=== PATIENT | female | born 1960 | race American Indian/Alaskan Native ===

== ENCOUNTER 2021-03-23 20:16 | Emergency (ER) | payer MEDICARE ==
[2021-03-23] MEDS ORDERED: HYDROmorphone 1 MG/ML Syringe IVPUSH ONE ×3 (20:29→21:27)
[2021-03-23] MEDS ORDERED: cloNIDine 0.1 MG Tab PO ONE (21:08)
--- NOTE | 2021-03-23 21:27 | EDM.PDOC ---
ED HPI GENERAL MEDICAL PROBLEM - General Chief Complaint: Lower Extremity Injury/Pain Stated Complaint: leg pain Time Seen by Provider: 03/23/21 20:25 Source of Information: Reports: Patient, Family (daughter), RN History Limitations: Reports: Other (severe pain) - History of Present Illness INITIAL COMMENTS - FREE TEXT/NARRATIVE: Pt comes in per EMS with complaints of severe leg pain bilaterally. She was in our ER earlier today with leg pain. She had pain in lower legs at that time and states that she could feel them but they were numb feeling. She had bilateral fem-pop done in 2010 and she has had pain in legs since then but not this severe. She had SS disability exam in Aug 2020 and they were not able to dopple pulses in either leg from her groin to her feet. Her BP at that exam by her report was 240/110. She was instructed to see PCP which she did not do and has not seen one since 2009. She states that randomly her legs will give out on her and she will lower herself to the floor. She states that her legs always hurt sometimes worse than others. Today she states that the pain was much worse and she came into the ER. She was able to walk in at that time without any assistance needed. She states that she could feel her legs but they felt numb. She had capillary refill. No pulses were able to be palpated or doppled from the groin on down. Her labs this afternoon were normal. She states that at discharge her legs were back to baseline and she was able to walk out. She relates that she was doing OK at home had started her Gabapentin and took her lisinopril as directed. Approximately 1730 she states that she developed severe pain to both legs that was worse that she has ever had so took a bath to try to help it and was unable to get out of tub without assistance. Since then she has not been able to bear weight or move her legs. She also noted that her legs became purple and her toes especially on the right foot became white. The left foot she states did not get white. When She returned to the ER she now has no sensation to the lower extremities from knees down and is not able to feel pinpricks. She can feel from the knees to the thigh and has increase in pain. She is not able to move her legs on her own. When they are moved they do cause increase in pain to the thighs. Legs are not edematous. They are now cool where earlier they were normal temp. She is in a severe amount of pain at this time. Saline lock was started and IV dilaudid was given with minimal relief and was repeated. See NN for times. Location: Reports: Lower Extremity, Left, Lower Extremity, Right Leg Pain Score (Numeric/FACES): 10 - Related Data Allergies Allergy/AdvReac Type Severity Reaction Status Date / Time No Known Allergies Allergy Verified 03/23/21 12:44 Home Meds: Home Meds Gabapentin [Neurontin] 100 mg PO TID 03/23/21 [History] lisinopriL [Lisinopril] 20 mg PO DAILY 03/23/21 [History] Past Medical History Cardiovascular History: Reports: Hypertension, Other (See Below) Other Cardiovascular History: peripheral artery disease Gastrointestinal History: Reports: Other (See Below) Other Gastrointestinal History: Sherman's esophagus - Infectious Disease History Infectious Disease History: Reports: None - Past Surgical History Cardiovascular Surgical History: Reports: Other (See Below) Other Cardiovascular Surgeries/Procedures: stents for PAD Social & Family History - Tobacco Use Tobacco Use Status *Q: Current Every Day Tobacco User Years of Tobacco use: 50 Packs/Tins Daily: 1 - Caffeine Use Caffeine Use: Reports: Coffee, Soda - Recreational Drug Use Recreational Drug Use: No Review of Systems - Review of Systems Review Of Systems: See Below Constitutional: Reports: Weakness. Denies: Chills, Fever Eyes: Reports: No Symptoms Ears: Reports: No Symptoms Nose: Reports: No Symptoms Mouth/Throat: Reports: No Symptoms Respiratory: Reports: No Symptoms Cardiovascular: Reports: No Symptoms GI/Abdominal: Reports: No Symptoms Musculoskeletal: Reports: Leg Pain, Foot Pain, Muscle Pain. Denies: Back Pain Skin: Reports: No Symptoms Neurological: Reports: No Symptoms ED EXAM, GENERAL - Physical Exam Exam: See Below Exam Limited By: No Limitations General Appearance: Alert, WD/WN, Severe Distress Ears: Normal External Exam, Normal Canal, Normal TMs Neck: Normal Inspection, Supple, Non-Tender Respiratory/Chest: No Respiratory Distress, Lungs Clear, Normal Breath Sounds Cardiovascular: Regular Rate, Rhythm Back Exam: Normal Inspection Extremities: Other (sdee HPI) Neurological: Alert, Oriented Course - Vital Signs Last Recorded V/S: Last Vital Signs Temp 96.5 F L 03/23/21 20:17 Pulse 86 06/03/21 20:17 Resp 16 03/23/21 20:17 BP 220/100 H 03/23/21 20:17 Pulse Ox 98 03/23/21 20:17 - Orders/Labs/Meds Meds: Medications Discontinued Medications Generic Name Dose Route Start Last Admin Trade Name aPulina PRN Reason Stop Dose Admin Hydromorphone HCl 2 mg 03/23/21 20:29 03/23/21 20:36 Hydromorphone 1 Mg/Ml Syringe IVPUSH 03/23/21 20:30 2 mg ONETIME ONE Administration Hydromorphone HCl 2 mg 03/23/21 20:49 03/23/21 20:54 Hydromorphone 1 Mg/Ml Syringe IVPUSH 03/23/21 20:50 2 mg ONETIME ONE Administration - Re-Assessments/Exams Free Text/Narrative Re-Assessment/Exam: 03/23/21 21:15 She is now able to move both lower extremities by pulling up her legs. She can move toes slightly. She can feel pinpricks from the mid calf up which improved as she couldn't feel below the knees when she came in. Legs are now slightly warm and pink verses cold and purple when she arrived. She has no sensation to feet bilaterally. She is resting much easier after receiving dilaudid. 03/23/212049 Discussed pt with Dr. Lindsey at ER in [facility]. He will accept pt in transfer by air. He did not recommend imaging as it will delay transfer time. 03/23/21 21:39 risks of transfer with were discussed with pt to include increase in pain enroute, worsening of condition up to . Risk of non transfer would be loss of limb, increase in pain. benefit of transfer would include increase ability to test, specialists as needed and ICU if needed. Benefit of non transfer would be closer to home. Pt is in agreement with the transfer. 03/23/21 21:42 Departure - Departure Time of Disposition: 21:39 Disposition: DC/Tfer to Acute Hospital 02 Condition: Serious Clinical Impression: PAD (peripheral artery disease), Numbness in both legs, Pulses absent in 2 limbs - Discharge Information *PRESCRIPTION DRUG MONITORING PROGRAM REVIEWED*: Not Applicable *COPY OF PRESCRIPTION DRUG MONITORING REPORT IN PATIENT RATNA: Not Applicable Referrals: PCP,Unknown [Primary Care Provider] - Additional Instructions: Pt will be transferred by air to [facility] with Dr. Lindsey accepting . Sepsis Event Note (ED) - Evaluation Sepsis Screening Result: No Definite Risk - Focused Exam Vital Signs: Vital Signs Temp Pulse Resp BP Pulse Ox 03/23/21 20:17 96.5 F L 86 16 220/100 H 98 - Problem List & Annotations (1) PVD (peripheral vascular disease) SNOMED Code(s): 113304661 Code(s): I73.9 - PERIPHERAL VASCULAR DISEASE, UNSPECIFIED Status: Acute Priority: High Current Visit: No (2) Neuropathy SNOMED Code(s): 670107975 Code(s): G62.9 - POLYNEUROPATHY, UNSPECIFIED Status: Acute Priority: High Current Visit: No (3) Numbness in both legs SNOMED Code(s): 352537992 Code(s): R20.0 - ANESTHESIA OF SKIN Status: Acute Priority: High Current Visit: Yes (4) PAD (peripheral artery disease) SNOMED Code(s): 327031293 Code(s): I73.9 - PERIPHERAL VASCULAR DISEASE, UNSPECIFIED Status: Acute P riority: High Current Visit: Yes (5) Pulses absent in 2 limbs SNOMED Code(s): 850111169 Code(s): R09.89 - OTH SYMPTOMS AND SIGNS INVOLVING THE CIRC AND RESP SYSTEMS Status: Acute Priority: High Current Visit: Yes - Problem List Review Problem List Initiated/Reviewed/Updated: Yes
== END 2021-03-23 22:05 ==
LOC: CC.ED 20:16
DX: I73.9 Peripheral vascular disease, unspecified (principal); I10 Essential (primary) hypertension; Z72.0 Tobacco use; Z79.899 Other long term (current) drug therapy; M79.609 Pain in unspecified limb
CPT/HCPCS: 36415; 71046; 80053; 81001; 85025; 85652; 86140; 93005; 93010; 96374; 96376; 99284; 99284-25; 99285-25; A9270-GY; J1170

== ENCOUNTER 2021-04-07 11:21 | Emergency (ER) | payer MEDICARE ==
--- NOTE | 2021-04-07 12:09 | EDM.PDOC ---
ED HPI GENERAL MEDICAL PROBLEM - General Chief Complaint: General Stated Complaint: LEG SWELLENING Time Seen by Provider: 04/07/21 11:35 Source of Information: Reports: Patient, Old Records History Limitations: Reports: No Limitations - History of Present Illness INITIAL COMMENTS - FREE TEXT/NARRATIVE: Carol is a 60 year old female who presents to the ED with c/o increased pain to right groin site and bilateral foot pain. She is status post axillary and bifemoral bypass with Dr. Cao on 03/25/2021. She was transferred out of our local ED with aortic occlusion and ischemia to [facility]. Has hx severe PAD. She has been anticoagulated on Coumadin and was previously bridging with Lovenox as well. She reports the last 2 days right groin site has had increased pain. She reports she is unable to see the site due to abdomen, so is unsure of what it looks like. She reports she has also had bilateral foot pain and numbness since Saturday. Does report that last night her left toes were changing colors and appeared "black" intermittently. She feels bilateral lower extremities have been more cool than the days following procedure. She denies any fever, chills, N/V/D, chest pain, shortness of breath. Onset Date: 04/05/21 Duration: Constant, Getting Worse Quality: Reports: Ache, Throbbing Severity: Severe Associated Symptoms: Reports: No Other Symptoms. Denies: Confusion, Chest Pain, Cough, cough w sputum, Diaphoresis, Fever/Chills, Headaches, Loss of Appetite, Malaise, Nausea/Vomiting, Rash, Seizure, Shortness of Breath, Syncope, Weakness bilateral feet Pain Score (Numeric/FACES): 8 - Related Data Allergies Allergy/AdvReac Type Severity Reaction Status Date / Time No Known Allergies Allergy Verified 04/07/21 11:37 Home Meds: Home Meds Gabapentin [Neurontin] 100 mg PO TID 03/23/21 [History] Warfarin [Coumadin] 2.5 mg PO DAILY 04/07/21 [History] Past Medical History Cardiovascular History: Reports: Hypertension, Other (See Below) (PAD) Other Cardiovascular History: peripheral artery disease Respiratory History: Reports: COPD Gastrointestinal History: Reports: Other (See Below) Other Gastrointestinal History: Sherman's esophagus - Infectious Disease History Infectious Disease History: Reports: None - Past Surgical History Other Cardiovascular Surgeries/Procedures: stents for PAD Social & Family History - Tobacco Use Tobacco Use Status *Q: Former Tobacco User Years of Tobacco use: 40 Tobacco Use Comment: Quit last week - Caffeine Use Caffeine Use: Reports: Coffee, Soda - Alcohol Use Alcohol Use in Last Twelve Months: No Alcohol Use Comment: Quit drinking 7 years ago - Recreational Drug Use Recreational Drug Use: No ED ROS GENERAL - Review of Systems Review Of Systems: See Below Constitutional: Denies: Fever, Chills, Malaise, Weakness, Fatigue, Decreased Appetite HEENT: Reports: No Symptoms Respiratory: Reports: No Symptoms Cardiovascular: Reports: No Symptoms Endocrine: Reports: No Symptoms GI/Abdominal: Reports: No Symptoms : Reports: No Symptoms Musculoskeletal: Reports: No Symptoms Skin: Reports: Other (incision to right upper chest and bilateral groin, kirit) Neurological: Reports: No Symptoms Psychiatric: Reports: No Symptoms ED EXAM, GENERAL - Physical Exam Exam: See Below Exam Limited By: No Limitations General Appearance: Alert, WD/WN, No Apparent Distress Head: Atraumatic, Normocephalic Neck: Normal Inspection, Supple, Non-Tender, Full Range of Motion Respiratory/Chest: No Respiratory Distress, No Accessory Muscle Use, Chest Non- Tender, Wheezing Cardiovascular: Regular Rate, Rhythm, No Edema Peripheral Pulses: 0: Posterior Tibial (L) (Able to Dopple faint pulse), Posterior Tibial (R) (able to dopple), Dorsalis Pedis (L) (able to dopple faint pulse), Dorsalis Pedis (R) (able to dopple) GI/Abdominal: Normal Bowel Sounds, Soft, Non-Tender, No Organomegaly, No Distention, No Abnormal Bruit, No Mass Extremities: Normal Range of Motion, Normal Capillary Refill (RLE), Slow Capillary Refill (3 seconds LLE), Leg Pain, Other (left lower extremity cool to touch up to mid calf, right lower extremity warm to touch ) Neurological: Alert, Oriented, CN II-XII Intact, Normal Cognition, Normal Gait, No Motor/Sensory Deficits Psychiatric: Normal Affect, Normal Mood Skin Exam: Wound/Incision (incision to bilatearl groin, right groin site with moderate calor, tenderness to palpation, erythema extending out surrounding incision, and purulent drainage, left groin site with mild calor and erythema, no drainage) Course - Vital Signs Last Recorded V/S: Last Vital Signs Temp 98.1 F 04/07/21 13:37 Pulse 101 H 04/07/21 13:37 Resp 18 04/07/21 13:37 BP 148/81 H 04/07/21 13:37 Pulse Ox 97 04/07/21 13:37 - Orders/Labs/Meds Orders: Active Orders 24 hr Category Date Time Status CULTURE BLOOD [BC] Stat Lab 04/07/21 11:59 Received CULTURE BLOOD [BC] Stat Lab 04/07/21 11:59 Received CULTURE WOUND [RM] Stat Lab 04/07/21 12:03 Received Blood Culture x2 Reflex Set [OM.PC] Stat Oth 04/07/21 11:37 Ordered EKG 12 Lead [EK] Stat Ther 04/07/21 11:37 Ordered Labs: Laboratory Tests 04/07/21 04/07/21 04/07/21 Range/Units 11:59 11:59 11:59 WBC 14.0 H (4.0-11.0) 10^3/uL RBC 3.39 L (4.00-5.50) x10^6/uL Hgb 10.1 L (12.0-16.0) g/dL Hct 31.8 L (37.0-47.0) % MCV 93.8 (83.0-97.0) fL MCH 29.8 (27.0-32.0) pg MCHC 31.8 L (32.0-36.0) g/dL RDW Coeff of Gissell 14.5 (11.0-15.0) % Plt Count 372 (150-400) 10^3/uL Immature Gran % (Auto) 0.6 (0.0-4.9) % Neut % (Auto) 70.6 (41-71) % Lymph % (Auto) 19.2 L (24-44) % [place] % (Auto) 7.1 (0-10) % Eos % (Auto) 2.0 (0-6) % Baso % (Auto) 0.5 (0-1) % Neut # (Auto) 9.89 H (1.80-8.00) x10^3/uL Lymph # (Auto) 2.69 (0.60-5.00) 10^3/uL [place] # (Auto) 1.00 (0.00-1.50) 10^3/uL Eos # (Auto) 0.28 (0.00-1.50) 10^3/uL Baso # (Auto) 0.07 (0.00-0.50) 10^3/uL Immature Gran # (Auto) 0.08 (0.00-0.49) 10^3/uL Sodium 140 (136-145) mEq/L Potassium 4.0 (3.5-5.0) mEq/L Chloride 102 (98-106) mEq/L Carbon Dioxide 28 (21-32) mmol/L BUN 14 (7-18) mg/dL Creatinine 0.7 (0.6-1.0) mg/dL Est Cr Clr Drug Dosing 73.80 mL/min Estimated GFR (MDRD) > 60 (>=60) mL/min Glucose 120 H (75-99) mg/dL Lactic Acid 1.3 (0.4-2.0) mmol/L Calcium 8.8 (8.4-10.1) mg/dL Magnesium 2.2 (1.8-2.4) mg/dL Total Bilirubin 0.2 (0.0-1.0) mg/dL AST 18 (15-37) U/L ALT 28 (12-78) U/L Alkaline Phosphatase 79 (46-116) U/L Troponin I < 0.017 (0.00-0.06) ng/mL C-Reactive Protein (0.2-0.8) mg/dL Total Protein 7.3 (6.4-8.2) g/dL Albumin 2.9 L (3.4-5.0) g/dL 04/07/21 Range/Units 12:00 WBC (4.0-11.0) 10^3/uL RBC (4.00-5.50) x10^6/uL Hgb (12.0-16.0) g/dL Hct (37.0-47.0) % MCV (83.0-97.0) fL MCH (27.0-32.0) pg MCHC (32.0-36.0) g/dL RDW Coeff of Gissell (11.0-15.0) % Plt Count (150-400) 10^3/uL Immature Gran % (Auto) (0.0-4.9) % Neut % (Auto) (41-71) % Lymph % (Auto) (24-44) % [place] % (Auto) (0-10) % Eos % (Auto) (0-6) % Baso % (Auto) (0-1) % Neut # (Auto) (1.80-8.00) x10^3/uL Lymph # (Auto) (0.60-5.00) 10^3/uL [place] # (Auto) (0.00-1.50) 10^3/uL Eos # (Auto) (0.00-1.50) 10^3/uL Baso # (Auto) (0.00-0.50) 10^3/uL Immature Gran # (Auto) (0.00-0.49) 10^3/uL Sodium (136-145) mEq/L Potassium (3.5-5.0) mEq/L Chloride (98-106) mEq/L Carbon Dioxide (21-32) mmol/L BUN (7-18) mg/dL Creatinine (0.6-1.0) mg/dL Est Cr Clr Drug Dosing mL/min Estimated GFR (MDRD) (>=60) mL/min Glucose (75-99) mg/dL Lactic Acid (0.4-2.0) mmol/L Calcium (8.4-10.1) mg/dL Magnesium (1.8-2.4) mg/dL Total Bilirubin (0.0-1.0) mg/dL AST (15-37) U/L ALT (12-78) U/L Alkaline Phosphatase (46-116) U/L Troponin I (0.00-0.06) ng/mL C-Reactive Protein 7.3 H (0.2-0.8) mg/dL Total Protein (6.4-8.2) g/dL Albumin (3.4-5.0) g/dL Meds: Medications Discontinued Medications Generic Name Dose Route Start Last Admin Trade Name Freq PRN Reason Stop Dose Admin Clindamycin Phosphate 600 mg/ 50 mls @ 100 mls/hr 04/07/21 12:06 04/07/21 12:17 Premix IV 04/07/21 12:35 100 mls/hr ONETIME ONE Administration - Re-Assessments/Exams Free Text/Narrative Re-Assessment/Exam: 04/07/21 12:[address] Rinaldi [facility] vascular surgeon. Recommend transfer given concerns for infection and faint pulses/cool to touch LLE. 04/07/21 12:[address] Aleman hospitalist at [facility] who accepted the patient for transfer. 04/07/21 12:50 Discussed recommendation for transfer with patient. Recommended patient be transferred via [facility]. Patient refuses transfer via EMS. She wishes to go via private vehicle. Discussed risks and benefits of transfer, especially via private vehicle. Risks of transfer include worsening of condition, , MVA, increased pain and ischemia enroute. Benefits of transfer include higher level of care with vascular surgeon consultation. Risks of nontransfer include worsening of condition, pain, sepsis, . Benefits of nontransfer includes convenience. I discussed my concern with her going via private vehicle vs EMS. Patient adamantly refuses EMS transfer. SHe verbalizes understanding of risks and is agreeable to transfer via private vehicle. Departure - Departure Time of Disposition: 13:07 Disposition: DC/Tfer to [facility] 02 Condition: Fair Clinical Impression: Status post bypass graft of extremity, Incisional infection, PAD (peripheral artery disease), PVD (peripheral vascular disease) - Discharge Information *PRESCRIPTION DRUG MONITORING PROGRAM REVIEWED*: Not Applicable *COPY OF PRESCRIPTION DRUG MONITORING REPORT IN PATIENT RATNA: Not Applicable Referrals: PCP,None [Primary Care Provider] - Forms: ED Department Discharge Sepsis Event Note (ED) - Evaluation Sepsis Screening Result: No Definite Risk - Focused Exam Vital Signs: Vital Signs Temp Pulse Resp BP Pulse Ox 04/07/21 13:37 98.1 F 101 H 18 148/81 H 97 04/07/21 11:33 98.4 F 106 H 20 167/99 H 95 - Problem List & Annotations (1) Incisional infection SNOMED Code(s): 74845470 Code(s): T81.49XA - INFECTION FOLLOWING A PROCEDURE, OTHER SURGICAL SITE, INIT Status: Acute (2) Status post bypass graft of extremity SNOMED Code(s): 672031999, 465191056 Code(s): Z95.828 - PRESENCE OF OTHER VASCULAR IMPLANTS AND GRAFTS Status: Acute (3) PAD (peripheral artery disease) SNOMED Code(s): 943529868 Code(s): I73.9 - PERIPHERAL VASCULAR DISEASE, UNSPECIFIED Status: Acute Priority: High (4) PVD (peripheral vascular disease) SNOMED Code(s): 645483413 Code(s): I73.9 - PERIPHERAL VASCULAR DISEASE, UNSPECIFIED Status: Acute Priority: High - Problem List Review Problem List Initiated/Reviewed/Updated: Yes - My Orders Last 24 Hours: My Active Orders 04/07/21 11:37 Blood Culture x2 Reflex Set [OM.PC] Stat EKG 12 Lead [EK] Stat 04/07/21 11:59 CULTURE BLOOD [BC] Stat CULTURE BLOOD [BC] Stat 04/07/21 12:03 CULTURE WOUND [RM] Stat - Assessment/Plan Last 24 Hours: My Active Orders 04/07/21 11:37 Blood Culture x2 Reflex Set [OM.PC] Stat EKG 12 Lead [EK] Stat 04/07/21 11:59 CULTURE BLOOD [BC] Stat CULTURE BLOOD [BC] Stat 04/07/21 12:03 CULTURE WOUND [RM] Stat Assessment:: Infected Incision State post byfemoral bypass graft Peripheral Arterial Disease Peripheral Vascular Disease Plan: 60 yo female presents to the ED with c/o increase lower extremity pain and right groin site pain. She is status post bifemoral bypass 03/25/2021. Right groin site with calor, tenderness, erythema and purulent drainage. Culture obtained from site and area cleansed. Lab work significant for WBC 14.0 and CRP 7.3. Was able to dopple PT and DP pulses bilaterally with left being more faint than right. Left lower extremity also cool to touch up to mid calf. ROM intact to BLE. Patient was given 600 mg IV clindamycin. Consulted with [facility] vascular surgeon Dr. Rinaldi, who recommends transfer. Discussed case with hospitalist Dr. Aleman, who accepted the patient for transfer. Patient refused EMS transfer and wishes to go via private vehicle. Verbalized understanding of risk. Patient will be direct admit to [facility]. She will be contacted by [facility] when bed is available and she can leave for [place]. She is advised to remain NPO until she gets to [place] and is further evaluated. Patient discharged from facility in stable condition.
[2021-04-07] MEDS: Clindamycin Phosphate in D5W 600 MG in Premix Bag 1 BAG IV ONE ×2 (12:17)
[2021-04-07 12:18] LABS: CHLORIDE,CL 102 mEq/L (98-106); SODIUM,NA 140 mEq/L (136-145)
== END 2021-04-07 13:38 ==
LOC: CC.ED 11:21
DX: T81.49XA Infection following a procedure, other surgical site, initial encounter (principal); I73.9 Peripheral vascular disease, unspecified; I10 Essential (primary) hypertension; J44.9 Chronic obstructive pulmonary disease, unspecified; Z87.891 Personal history of nicotine dependence; Z79.01 Long term (current) use of anticoagulants; Z79.899 Other long term (current) drug therapy; Z95.828 Presence of other vascular implants and grafts
CPT/HCPCS: 36415; 80053; 83605; 83735; 84484; 85025; 86140; 87040; 87070; 87077; 87186; 93005; 93010; 96365; 99284; 99284-25; J3490

== ENCOUNTER 2022-02-13 13:50 | Emergency (ER) | payer MEDICARE, MEDICAID ==
[2022-02-13 14:37] LABS: CHLORIDE,CL 103 mEq/L (98-106); SODIUM,NA 138 mEq/L (136-145)
[2022-02-13] MEDS: cloNIDine 0.1 MG Tab PO STA (15:01)
[2022-02-13] MEDS: Iopamidol 755 Mg/ML 200 ML Bottle IV ONE (15:04)
[2022-02-13] MEDS: Enoxaparin 100 MG/1 ML Syringe SUBCUT STA (18:24)
== END 2022-02-13 18:45 | disposition home or self-care (01) ==
LOC: CC.ED 13:50
DX: I73.9 Peripheral vascular disease, unspecified (principal); I10 Essential (primary) hypertension; J44.9 Chronic obstructive pulmonary disease, unspecified; Z79.82 Long term (current) use of aspirin; Z72.0 Tobacco use
CPT/HCPCS: 36415; 71046; 75635; 80053; 84484; 85025; 85379; 85610; 86140; 93005; 96372; 99284; 99284-25; A9270-GY; J1650; Q9967